=== PATIENT | male | born 1965 | race Caucasian/White ===

== ENCOUNTER 2019-03-08 14:55 | Emergency (ER) | payer MEDICARE, MEDICAID ==
[~2019-03-08] VITALS: Ht 177.8 cm; Wt 73.0 kg
[~2019-03-08 14:55] MED LIST: AMLO2.5T45; ATOR10TA PO; ECOTRIN PO; HYDR-4135 PO; INSASP; INSULIN NPH SUBCUT; LABE5VIA3; LEVO50TA PO; LISI2.5T47 PO; METO25TA6 PO
[2019-03-08 17:15] VITALS: BP 132/84
== END 2019-03-08 17:57 | disposition home or self-care (01) ==
LOC: ER 14:55
DX: E11.65 Type 2 diabetes mellitus with hyperglycemia (principal); E11.9 Type 2 diabetes mellitus without complications; I12.0 Hypertensive chronic kidney disease with stage 5 chronic kidney disease or end stage renal disease; E11.22 Type 2 diabetes mellitus with diabetic chronic kidney disease; N18.6 End stage renal disease; Z99.2 Dependence on renal dialysis; Z98.890 Other specified postprocedural states; F12.10 Cannabis abuse, uncomplicated; Z88.0 Allergy status to penicillin; Z79.899 Other long term (current) drug therapy; Z79.4 Long term (current) use of insulin
CPT/HCPCS: 82962; 99283